=== PATIENT | female | born 1945 | race Caucasian/White ===

== ENCOUNTER 2017-11-19 15:02 | Emergency (ER) | payer MEDICARE ==
[~2017-11-19] VITALS: Ht 170.2 cm; Wt 86.3 kg
[2017-11-19] MEDS ORDERED: ALBUTEROL/IPRATROPIUM 3 ML NEB NEB ONE (15:30)
== END 2017-11-19 16:11 | disposition home or self-care (01) ==
LOC: FSED 15:02
DX: R05 Cough (principal); J05.0 Acute obstructive laryngitis [croup]; J20.9 Acute bronchitis, unspecified
CPT/HCPCS: 71046; 99282

== ENCOUNTER 2017-12-06 17:41 | Emergency (ER) | payer MEDICARE ==
[~2017-12-06] VITALS: Ht 170.2 cm; Wt 87.1 kg
--- OUTSIDE RECORDS SUMMARY | 2017-12-06 17:43 | XMS REPORT | Continuity of Care Document ---
Author Author [facility] Organization [facility] Address [address] [place] [address] Phone Unavailable Care Team Providers Care [employer] Worker Name Role Phone MARCIRUZ ARZATE PCP Insurance Providers Guarantor Jadyn Aguilar Address [address] [place] [address] Email NONE Payer [facility] Policy Number [id number] Subscriber's Name Jadyn Aguilar Relationship 18 Self / Same As Patient Effective Date 16 Payer Medicare A & B Policy Number [id number] Subscriber's Name Jadyn Aguilar Relationship 18 Self / Same As Patient Effective Date 08 Advance Directives Directive Response Recorded Date/Time Does the patient have an advance directive? No 09/29/16 9:28am If yes, is advance directive on file with [facility]? No 09/29/16 9:28am If not on file with [facility] will patient provide a copy? No 09/29/16 9:28am Problems No problem information available. Medications No medication information available. Social History Smoking Status Start Date Stop Date Never Smoker Hospital Discharge Instructions No hospital discharge instruction information available. Plan of Care Discharge Date 11/19/17 4:11pm Disposition HOME, SELF-CARE Condition at Discharge Stable Instructions/Education Provided Asthma - Adult Bronchitis (Acute) - Adult Forms Provided Work/School Excuse Prescriptions See Medication Section Referrals MARICRUZ ARZATE Address: [address] [place] [address] Functional Status No functional status information available. Allergies, Adverse Reactions, Alerts Allergen Type Severity Reaction Status Last Updated Iodine Allergy Severe Active 11/19/17 PENICILLIN Allergy Severe Active 11/19/17 Immunizations No immunization information available. Vital Signs Acute Vital Signs Vital Response Date/Time Pulse Pulse Rate (adult) 105 bpm (60 - 90) 11/19/2017 3:49pm Respiratory Rate 18 bpm (12 - 24) 11/19/2017 3:49pm Height 5 ft 7 in 11/19/2017 3:02pm Weight 190.31 lb 11/19/2017 3:02pm Body Mass Index 29.8 kg/m^2 11/19/2017 3:02pm Results No relevant diagnostic test, laboratory data and/or discharge summary information available. Procedures No procedure information available. Encounters Encounter Location Arrival/Admit Date Discharge/Depart Date Attending Provider Departed Emergency Room [facility] 11/19/17 3:02pm 4:11pm STEPHANIE ZARAGOZA MD
== END 2017-12-06 20:00 | disposition home or self-care (01) ==
LOC: FSED 17:41 → EDBEDREQ 17:56 → FSED 20:00
DX: J44.0 Chronic obstructive pulmonary disease with (acute) lower respiratory infection (principal); J20.9 Acute bronchitis, unspecified; C34.90 Malignant neoplasm of unspecified part of unspecified bronchus or lung; Z99.81 Dependence on supplemental oxygen; Z88.0 Allergy status to penicillin; Z91.048 Other nonmedicinal substance allergy status; Z88.8 Allergy status to other drugs, medicaments and biological substances
CPT/HCPCS: 93005; 99284